=== PATIENT | male | born 2000 | race Caucasian/White ===

== ENCOUNTER 2020-04-18 22:23 | Emergency (ER) | payer OTHER ==
[~2020-04-18 22:23] MED LIST: LIDOCAINE PATCH REMOVAL MC SCH
[2020-04-18 22:40] VITALS: BP 138/82; PULSE 81; TEMP 98.7; BMI 25.0
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
[2020-04-18] MEDS ORDERED: ACETAMINOPHEN 500 MG TABLET (FP) PO ONE (23:02)
[2020-04-18] MEDS ORDERED: METHOCARBAMOL 500 MG TABLET PO ONE (23:47)
[2020-04-18] MEDS ORDERED: LIDOCAINE 5% TOPICAL PATCH TP ONE (23:48)
[2020-04-18] MEDS ORDERED: LIDOCAINE 5% TOPICAL PATCH ONE (23:53)
[2020-04-18] MEDS ORDERED: METHOCARBAMOL 500 MG TABLET ONE (23:53)
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
--- NOTE | 2020-04-19 14:58 | EKG ---
Test Reason : Blood Pressure : / mmHG Vent. Rate : 067 BPM Atrial Rate : 067 BPM P-R Int : 188 ms QRS Dur : 094 ms QT Int : 386 ms P-R-T Axes : 069 107 032 degrees QTc Int : 407 ms SINUS RHYTHM WITH MARKED SINUS ARRHYTHMIA RIGHTWARD AXIS BORDERLINE ECG WHEN COMPARED WITH ECG OF 28-MAR-2020 14:18, NO SIGNIFICANT CHANGE WAS FOUND Confirmed by Alex Berry ([id number]) on 04/19/2020 2:57:31 PM Referred By: Confirmed By:Alex Berry
== END 2020-04-19 01:35 | disposition home or self-care (01) ==
LOC: JER 22:23
DX: M54.2 Cervicalgia (principal); M25.531 Pain in right wrist
CPT/HCPCS: 71046-TC-FY; 72050-TC-FY; 72070-TC-FY; 73110-TC-RT-FY; 73130-TC-RT-FY; 93005; 93010; 99285-25